=== PATIENT | female | born 1990 | race Caucasian/White ===

== ENCOUNTER → 2017-09-29 | Outpatient (CLI) | payer MEDICAID ==
[~2017-09-29] MED LIST: DARVOCET-N 1001 EACH PO; IBU-8800 MG PO; LORTAB 5/500 501 TAB PO; PERCOCET 5/3251 EACH PO; PRENATAL PLUS1 TA1 PO; SKELAXIN 800MG800 MG PO
[2017-09-29 16:53] LABS: HEMOGLOBIN 11.4 g/dL (12.2-16.2); LYMPH # 2.1 K/mm3 (0.7-4.5); LYMPH % 21.6 % (10-50.0)
[2017-09-29 18:17] LABS: ABO BLOOD TYPE A; RH BLOOD TYPE POSITIVE
[2017-10-01 05:40] LABS: HIV Screen 4th Generation wRfx Non Reactive (Non Reactive)
[2017-10-01 08:53] LABS: HBsAg Screen Negative (Negative); Hep C Virus Ab <0.1 (0.0-0.9); Rapid Plasma Reagin, Quant Non Reactive (NonRea<1:1)
[2017-10-02 05:36] LABS: Rubella Antibodies, IgG 3.23 index (Immune >0.99)
== END ==
LOC: LAB 16:23
PROVIDERS: Nurse Practitioner Obstetrics & Gynecology
DX: Z34.80 Encounter for supervision of other normal pregnancy, unspecified trimester (principal)
CPT/HCPCS: G0432

== ENCOUNTER → 2017-10-07 | Outpatient (CLI) | payer MEDICAID ==
--- NOTE | 2017-10-07 16:34 | RADIOLOGY REPORT PS360 ---
US PREG<14 WKS 1ST GEST SINGLE CLINICAL INDICATION: Evaluate age, unsure of dates DATES ORDERING PHYSICIAN: Kulwinder Rivas MD PATIENT AGE: 27 years COMPARISON: None FINDINGS: There is a single live intrauterine gestation with an average ultrasound age of 13 weeks 2 days.. Estimated due date by ultrasound is 04/12/2018 heart and body motion noted with an FHR 155 bpm's. Estimated weight is 68 g which is 2 percentile. BPD 13 weeks 5 days, HC 13 weeks 3 days, abdominal circumference 13 weeks 2 days, FL 12 weeks 6 days. The placenta is forming anteriorly. Amnionic chorion have not yet fused. There is a three-vessel cord. Yolk sac is noted. Adnexa are unremarkable. IMPRESSION: Live IUP at 13 weeks 2 days with an estimated due date of 04/12/2018 by ultrasound
== END ==
LOC: RAD 12:59
DX: O26.841 Uterine size-date discrepancy, first trimester (principal)